=== PATIENT | male | born 2000 | race Caucasian/White ===

== ENCOUNTER 2025-10-13 12:14 | Emergency (ER) | payer OTHER ==
[~2025-10-13] VITALS: Ht 177.8 cm; Wt 113.6 kg
[2025-10-13 12:17] VITALS: TEMP 98
[2025-10-13] MEDS: ACETAMINOPHEN/CODEINE 300-30 MG TABLET PO ONE (13:21)
[2025-10-13] MEDS: IBUPROFEN 600 MG TABLET PO ONE (13:21)
[2025-10-13 14:25] VITALS: BP 132/72; PULSE 82; RESP 16; O2SAT 99
[2025-10-13] MEDS ORDERED: ACET-2080 PO (14:29)
[2025-10-13] MEDS ORDERED: IBUP-1554 PO (14:29)
[2025-10-13] MEDS ORDERED: METH-659 PO (14:29)
== END 2025-10-13 15:02 | disposition home or self-care (01) ==
LOC: EMS 12:18
DX: S39.012A Strain of muscle, fascia and tendon of lower back, initial encounter (principal); S29.011A Strain of muscle and tendon of front wall of thorax, initial encounter; S30.0XXA Contusion of lower back and pelvis, initial encounter; F17.210 Nicotine dependence, cigarettes, uncomplicated; W01.0XXA Fall on same level from slipping, tripping and stumbling without subsequent striking against object, initial encounter; Y93.89 Activity, other specified; Y92.511 Restaurant or cafe as the place of occurrence of the external cause; Y99.8 Other external cause status
CPT/HCPCS: 71101; 72100; 72170; 99284; Z7502; Z7610